=== PATIENT | male | born 1930 | race Caucasian/White ===

== ENCOUNTER 2019-12-12 07:22 | Emergency (ER) | payer MEDICARE, OTHER ==
[~2019-12-12] VITALS: Ht 172.7 cm; Wt 78.9 kg
--- NOTE | 2019-12-12 07:30 | NUR ---
fr home c/o nausea and vomiting and bilateral flank pain. pt is french speaking. family member at bedside for czech translation. no fever noted. awaiting for md hurst
--- NOTE | 2019-12-12 07:45 | NUR ---
iv line established. blood drawn and sent to lab. pt unable to collect urine at this time
[2019-12-12] MEDS ORDERED: ONDANSETRON HCL/PF 4 MG/2 ML VIAL IVP ONE (08:00)
[2019-12-12] MEDS ORDERED: MORPHINE SULFATE INJ 2 MG/ML DISP.SYRIN IV ONE ×2 (08:00→10:30)
[2019-12-12] MEDS ORDERED: MORPHINE SULFATE INJ 2 MG/ML DISP.SYRIN ONE ×2 (08:01→10:29)
[2019-12-12] MEDS ORDERED: ONDANSETRON HCL/PF 4 MG/2 ML VIAL ONE ×2 (08:01→10:41)
[2019-12-12 08:20] LABS: CALCIUM, SERUM 8.8 mg/dL (8.5-10.1); CARBON DIOXIDE 25 mmol/L (21-32); CHLORIDE 107 mmol/L (98-107); CREATININE 1.6 mg/dL (0.6-1.3); GLUCOSE 157 mg/dL (74-106); POTASSIUM 5.1 mmol/L (3.5-5.1); SODIUM SERUM 143 mmol/L (136-145); UREA NITROGEN, BLOOD 40 mg/dL (7-18)
[2019-12-12 08:25] LABS: ALANINE AMINOTRANSFERASE 37 U/L (12-78); ALBUMIN 4.3 g/dL (3.4-5.0); ALKALINE PHOSPHATASE 114 U/L (46-116); ASPARTATE AMINOTRANSFERASE 37 U/L (15-37); BILIRUBIN,DIRECT 0.1 mg/dL (0.0-0.2); BILIRUBIN,TOTAL 0.5 mg/dL (0.2-1.0); LIPASE 83 U/L (73-393); TOTAL PROTEIN, SERUM 7.8 g/dL (6.4-8.2)
--- NOTE | 2019-12-12 08:46 | NUR ---
URINE COLLECTED AND SENT TO LAB
[2019-12-12 08:54] LABS: HEMATOCRIT 32 % (39-51); HEMOGLOBIN 9.7 g/dL (13.5-17.5); LYMPHOCYTES # (AUTO) 9.1 /CMM (0.8-4.8); LYMPHOCYTES % (AUTO) 11.5 % (20.0-44.0); MEAN CORPUSCULAR HGB CONC 30 g/dl (31.0-36.0); MEAN CORPUSCULAR VOLUME 82 fL (80-96); MONOCYTES # (AUTO) 40.5 /CMM (0.1-1.30); MONOCYTES % (AUTO) 51.3 % (2.0-12.0); NEUTROPHILS # (AUTO) 29.4 /CMM (1.8-8.9); NEUTROPHILS % (AUTO) 37.2 % (43.0-81.0); PLATELET COUNT (AUTO) 170 /CMM (150-450); RED BLOOD CELL COUNT(AUTO) 3.86 MIL/uL (4.5-6.0)
--- NOTE | 2019-12-12 09:03 | NUR ---
received wbc result of 79. relayed to
[2019-12-12 09:07] LABS: BILIRUBIN,URINE Negative (NEGATIVE); BLOOD, URINE Large Ery/uL (NEGATIVE); COLOR,URINE Yellow (YELLOW); KETONES,URINE Negative (NEGATIVE); LEUKOCYTE ESTERASE ,URINE Negative (NEGATIVE); NITRITE, URINE Negative (NEGATIVE); PH,URINE 5.5 (5.0-8.0); PROTEIN,URINE 100 mg/dl (NEGATIVE); UGLUCOSE Negative (NEGATIVE); UROBILINOGEN,URINE 0.2 EU/dL (0.2)
[2019-12-12 09:11] LABS: APPEARANCE,URINE SLIGHTLY CLOUDY (CLEAR)
[2019-12-12 09:21] LABS: BAND % (MANUAL) 18 % (0.0-5.0); LYMPHOCYTES % (MANUAL) 14 % (16-48); METAMYELOCYTES % 1 % (0-0); MONOCYTES % (MANUAL) 18 % (0-11.0); MYELOCYTES % 1 % (0-0); NEUTROPHILS % (MANUAL) 48 (42-76)
[2019-12-12 09:31] LABS: RBC,URINE 21-50 /HPF (0-2)
[2019-12-12 09:32] LABS: BACTERIA,URINE Few /HPF (None Seen); SQUAMOUS EPITHELIAL CELL,UR Few /HPF (None Seen)
[2019-12-12] MEDS ORDERED: FOLI0.4T2 PO (09:44)
[2019-12-12] MEDS ORDERED: ROSU20TA2 PO (09:44)
[2019-12-12] MEDS ORDERED: DEXL60CA3 PO (09:44)
[2019-12-12] MEDS ORDERED: COLC0.6C3 PO (09:44)
[2019-12-12] MEDS ORDERED: MEMA14CA PO (09:44)
[2019-12-12] MEDS ORDERED: DUTA0.5C PO (09:44)
[2019-12-12] MEDS ORDERED: ERGO500014 PO (09:44)
[2019-12-12] MEDS ORDERED: LOPE2CAP PO (09:44)
[2019-12-12] MEDS ORDERED: DICL100G16 TP (09:44)
[2019-12-12] MEDS ORDERED: FESO4TAB PO (09:44)
[2019-12-12] MEDS ORDERED: EZET10TA16 PO (09:44)
[2019-12-12] MEDS ORDERED: CELE200C PO (09:44)
[2019-12-12] MEDS ORDERED: ACET-2605 PO (09:44)
[2019-12-12] MEDS ORDERED: ASPI-1169 PO (09:44)
[2019-12-12] MEDS ORDERED: KETOROLAC TROMETHAMINE INJ 30 MG/ML VIAL ONE (10:30)
[2019-12-12] MEDS ORDERED: KETOROLAC TROMETHAMINE INJ 30 MG/ML VIAL IV ONE (10:30)
[2019-12-12] MEDS ORDERED: IV NS 0.9% 500 ML BAG IV ONE (10:30)
[2019-12-12] MEDS ORDERED: ONDANSETRON HCL/PF - ER 4 MG/2 ML VIAL IV ONE (11:00)
--- NOTE | 2019-12-12 11:15 | NUR ---
pt in bed alert and able to make needs known. family member at bedside for czech hand ii cutter. pt no pain at this time. all needs attended. v/s stable.
[2019-12-12 11:51] VITALS: BP 123/76
== END 2019-12-12 11:51 | disposition home or self-care (01) ==
LOC: ER 07:28
DX: N20.0 Calculus of kidney (principal); D46.9 Myelodysplastic syndrome, unspecified; R16.1 Splenomegaly, not elsewhere classified; Z79.899 Other long term (current) drug therapy; Z79.82 Long term (current) use of aspirin
CPT/HCPCS: 36415; 71045; 74176; 80048; 80076; 81001; 83690; 85007; 85025; 85730; 93005; 96374; 96375; 96376; 99285; J1885; J2270 ×2; J2405 ×3; J7040; 81000-TC

== ENCOUNTER 2019-12-16 16:17 | Emergency (ER) | payer MEDICARE, OTHER ==
[~2019-12-16] VITALS: Ht 172.7 cm; Wt 81.6 kg
[~2019-12-16 16:17] MED LIST: ACET-2605 PO; ASPI-1169 PO; CELE200C PO; COLC0.6C3 PO; DEXL60CA3 PO; DICL100G16 TP; DUTA0.5C PO; ERGO500014 PO; EZET10TA16 PO; FESO4TAB PO; FOLI0.4T2 PO; LOPE2CAP PO; MEMA14CA PO; ROSU20TA2 PO
--- NOTE | 2019-12-16 16:25 | NUR ---
PT BIB [facility] WITH C/O R LOWER BACK PAIN 10/19. PER CAREGIVER PT WAS JUST HERE LAST MOPNDAY AND THAT THEY DIAGNOSED PT WITH KIDNEY STONES. VS CHECKED. BLOOD DRAWN. SENT TO LAB. IV ACCESS STARTED ON RFA G18. AWAITING MD MATHEW.
[2019-12-16] MEDS ORDERED: MORPHINE SULFATE INJ 4 MG/ML DISP.SYRIN ONE (16:53)
[2019-12-16] MEDS ORDERED: ONDANSETRON HCL/PF 4 MG/2 ML VIAL ONE (16:53)
[2019-12-16] MEDS ORDERED: ONDANSETRON HCL/PF 4 MG/2 ML VIAL IVP ONE (17:00)
[2019-12-16] MEDS ORDERED: IV NS 0.9% 1,000 ML BAG IV ONE ×2 (17:00→18:00)
[2019-12-16] MEDS ORDERED: MORPHINE SULFATE INJ 2 MG/ML DISP.SYRIN IV ONE (17:00)
[2019-12-16 17:09] LABS: CALCIUM, SERUM 8.9 mg/dL (8.5-10.1); CARBON DIOXIDE 21 mmol/L (21-32); CHLORIDE 100 mmol/L (98-107); CREATININE 2.5 mg/dL (0.6-1.3); EOSINOPHILS % (AUTO) 0.1 % (0.0-6.0); GLUCOSE 97 mg/dL (74-106); HEMATOCRIT 29 % (39-51); LYMPHOCYTES # (AUTO) 5.7 /CMM (0.8-4.8); LYMPHOCYTES % (AUTO) 12.9 % (20.0-44.0); MEAN CORPUSCULAR HGB CONC 31 g/dl (31.0-36.0); MEAN CORPUSCULAR VOLUME 82 fL (80-96); MONOCYTES # (AUTO) 27.5 /CMM (0.1-1.30); MONOCYTES % (AUTO) 61.9 % (2.0-12.0); NEUTROPHILS # (AUTO) 11.1 /CMM (1.8-8.9); NEUTROPHILS % (AUTO) 25.1 % (43.0-81.0); PLATELET COUNT (AUTO) 136 /CMM (150-450); POTASSIUM 5.2 mmol/L (3.5-5.1); RED BLOOD CELL COUNT(AUTO) 3.52 MIL/uL (4.5-6.0); SODIUM SERUM 133 mmol/L (136-145); UREA NITROGEN, BLOOD 36 mg/dL (7-18)
[2019-12-16 17:12] LABS: WHITE BLOOD COUNT (AUTO) 44.4 K/uL (4.3-11.0)
[2019-12-16 17:15] LABS: ALANINE AMINOTRANSFERASE 21 U/L (12-78); ALBUMIN 3.9 g/dL (3.4-5.0); ALKALINE PHOSPHATASE 126 U/L (46-116); ASPARTATE AMINOTRANSFERASE 28 U/L (15-37); BILIRUBIN,DIRECT 0.2 mg/dL (0.0-0.2); BILIRUBIN,TOTAL 0.5 mg/dL (0.2-1.0); TOTAL PROTEIN, SERUM 7.8 g/dL (6.4-8.2)
[2019-12-16 17:37] LABS: APPEARANCE,URINE Slightly Cloudy (CLEAR); BILIRUBIN,URINE Negative (NEGATIVE); BLOOD, URINE Large Ery/uL (NEGATIVE); COLOR,URINE Yellow (YELLOW); LEUKOCYTE ESTERASE ,URINE Trace (NEGATIVE); NITRITE, URINE Negative (NEGATIVE); PH,URINE 5.5 (5.0-8.0); PROTEIN,URINE 30 mg/dl (NEGATIVE); UGLUCOSE Negative (NEGATIVE); UROBILINOGEN,URINE 0.2 EU/dL (0.2)
--- NOTE | 2019-12-16 17:45 | NUR ---
PT BACK FROM CT
--- NOTE | 2019-12-16 17:49 | NUR ---
CALLED DR MCKEON, LEFT VOICEMAIL
[2019-12-16 18:08] LABS: BACTERIA,URINE Few /HPF (None Seen); SQUAMOUS EPITHELIAL CELL,UR 0-2 /HPF (None Seen)
[2019-12-16 18:11] LABS: URINE AMORPHOUS URATE Moderate /HPF (None Seen)
--- NOTE | 2019-12-16 18:11 | NUR ---
DR MODI SPEAKING WITH DR MCKEON
--- NOTE | 2019-12-16 18:15 | NUR ---
DR. MODI BY BEDSIDE SPEAKING WITH THE DAUGHTER
[2019-12-16] MEDS ORDERED: KETOROLAC TROMETHAMINE 15 MG/ML VIAL ONE (18:19)
[2019-12-16] MEDS ORDERED: BISACODYL SUPP (10 MG) 10 MG/SUPP.RECT SUPP.RECT RC ONE ×2 (18:22→18:30)
[2019-12-16] MEDS ORDERED: KETOROLAC TROMETHAMINE INJ 30 MG/ML VIAL IV ONE (18:30)
[2019-12-16 19:03] LABS: BAND % (MANUAL) 7 % (0.0-5.0); LYMPHOCYTES % (MANUAL) 30 % (16-48); MONOCYTES % (MANUAL) 20 % (0-11.0); NEUTROPHILS % (MANUAL) 40 (42-76); REACTIVE LYMPHOCYTES 3 % (0-0)
--- NOTE | 2019-12-16 19:14 | NUR ---
Patient discharged to home in stable condition. Written and verbal after care instructions given. Patient verbalizes understanding of instruction. IV removed. Catheter intact and site benign. Pressure and 4x4 applied to site. No bleeding noted.
[2019-12-16 19:15] VITALS: BP 136/72
== END 2019-12-16 19:16 | disposition home or self-care (01) ==
LOC: ER 16:22
DX: N23 Unspecified renal colic (principal); E86.0 Dehydration; N28.9 Disorder of kidney and ureter, unspecified; D46.9 Myelodysplastic syndrome, unspecified; Z79.899 Other long term (current) drug therapy; Z79.82 Long term (current) use of aspirin
CPT/HCPCS: 36415; 74176; 80048; 80076; 81001; 85007; 85025; 96361; 96374; 96375; 99284; J1885; J2270; J2405; J7030 ×2; 81000-TC

== ENCOUNTER 2019-12-21 22:55 | Inpatient (IN) | payer MEDICARE, OTHER ==
[~2019-12-21] VITALS: Ht 172.7 cm; Wt 78.5 kg
[~2019-12-21 22:55] MED LIST changes: -EZET10TA16 PO; +EZET10TA6 PO
--- NOTE | 2019-12-21 23:05 | NUR ---
pt BIBSON C/O DYSURIA. RECENTLY DX WITH KIDNEY STONE 12/12/19. PT SATTING 91% ON RA. PT PLACED ON O2 2 LPM SATTING 94%. PT AAOX4, VSS, RESPIRATIONS EVEN AND UNLABORED ON RA W/ NAD NOTED. PT CONNECTED TO THE MONITOR AND POX
--- NOTE | 2019-12-21 23:10 | NUR ---
BLOOD COLLECTED AND SENT TO LAB
[2019-12-21 23:33] LABS: BASOPHILS # (AUTO) 0.8 /CMM (0.0-0.2); BASOPHILS % (AUTO) 1.2 % (0.0-2.0); EOSINOPHILS % (AUTO) 0.4 % (0.0-6.0); HEMATOCRIT 28 % (39-51); HEMOGLOBIN 8.5 g/dL (13.5-17.5); LYMPHOCYTES # (AUTO) 3.8 /CMM (0.8-4.8); LYMPHOCYTES % (AUTO) 6.1 % (20.0-44.0); MEAN CORPUSCULAR HGB CONC 31 g/dl (31.0-36.0); MEAN CORPUSCULAR VOLUME 81 fL (80-96); MONOCYTES # (AUTO) 5.6 /CMM (0.1-1.30); MONOCYTES % (AUTO) 9.1 % (2.0-12.0); NEUTROPHILS # (AUTO) 51.2 /CMM (1.8-8.9); NEUTROPHILS % (AUTO) 83.2 % (43.0-81.0); PLATELET COUNT (AUTO) 140 /CMM (150-450); RED BLOOD CELL COUNT(AUTO) 3.42 MIL/uL (4.5-6.0)
[2019-12-21 23:34] LABS: WHITE BLOOD COUNT (AUTO) 61.6 K/uL (4.3-11.0)
[2019-12-21 23:41] LABS: CALCIUM, SERUM 8.2 mg/dL (8.5-10.1); CARBON DIOXIDE 21 mmol/L (21-32); CHLORIDE 102 mmol/L (98-107); CREATININE 3.1 mg/dL (0.6-1.3); GLUCOSE 126 mg/dL (74-106); POTASSIUM 5.1 mmol/L (3.5-5.1); SODIUM SERUM 133 mmol/L (136-145); UREA NITROGEN, BLOOD 50 mg/dL (7-18)
[2019-12-21 23:47] LABS: ALANINE AMINOTRANSFERASE 20 U/L (12-78); ALBUMIN 2.9 g/dL (3.4-5.0); ALKALINE PHOSPHATASE 186 U/L (46-116); ASPARTATE AMINOTRANSFERASE 30 U/L (15-37); BILIRUBIN,DIRECT 0.2 mg/dL (0.0-0.2); BILIRUBIN,TOTAL 0.4 mg/dL (0.2-1.0); LIPASE 99 U/L (73-393); TOTAL PROTEIN, SERUM 7.2 g/dL (6.4-8.2)
[2019-12-22 00:01] LABS: BILIRUBIN,URINE SMALL (NEGATIVE); BLOOD, URINE Moderate Ery/uL (NEGATIVE); COLOR,URINE YELLOW (YELLOW); LEUKOCYTE ESTERASE ,URINE Trace (NEGATIVE); NITRITE, URINE Negative (NEGATIVE); PROTEIN,URINE 30 mg/dl (NEGATIVE); UGLUCOSE Negative (NEGATIVE); UROBILINOGEN,URINE 0.2 EU/dL (0.2)
[2019-12-22 00:01] LABS: BAND % (MANUAL) 4 % (0.0-5.0); LYMPHOCYTES % (MANUAL) 32 % (16-48); MONOCYTES % (MANUAL) 8 % (0-11.0); NEUTROPHILS % (MANUAL) 41 (42-76)
[2019-12-22 00:02] LABS: BACTERIA,URINE Few /HPF (None Seen); RBC,URINE 21-50 /HPF (0-2); SQUAMOUS EPITHELIAL CELL,UR Few /HPF (None Seen)
[2019-12-22 00:02] LABS: METAMYELOCYTES % 15 % (0-0)
--- NOTE | 2019-12-22 00:28 | NUR ---
CALLED RT FOR BREATHING TX
[2019-12-22] MEDS ORDERED: ALBUTEROL FS 2.5 MG/0.5 ML VIAL.NEB NEB ONE (00:30)
[2019-12-22] MEDS ORDERED: IV NS 0.9% 1,000 ML BAG IV ONE (00:30)
[2019-12-22] MEDS ORDERED: ZOLPIDEM TARTRATE 5 MG TABLET PO PRN (01:00)
[2019-12-22] MEDS ORDERED: Z GUARD REMEDY 2 OZ OINT TP PRN (01:00)
[2019-12-22] MEDS ORDERED: MAG HYDROX/AL HYDROX/SIMETH 30 ML UDC PO PRN (01:00)
[2019-12-22] MEDS ORDERED: HYDROCODONE/APAP 5/325MG TABLET PO PRN (01:00)
[2019-12-22] MEDS ORDERED: ACETAMINOPHEN 325 MG TABLET PO PRN (01:00)
[2019-12-22] MEDS ORDERED: ONDANSETRON HCL/PF 4 MG/2 ML VIAL IVP PRN (01:00)
[2019-12-22] MEDS ORDERED: MAGNESIUM HYDROXIDE 30 ML UDC PO PRN (01:00)
[2019-12-22] MEDS ORDERED: DICLOFENAC TOPICAL 100 GM GEL..GM. TP PRN ×2 (01:00→07:30)
[2019-12-22] MEDS ORDERED: LOPERAMIDE HCL (2 MG CAP) 2 MG CAPSULE PO PRN (01:00)
[2019-12-22] MEDS ORDERED: ALBUTEROL FS 2.5 MG/0.5 ML VIAL.NEB ONE (01:01)
--- NOTE | 2019-12-22 01:06 | NUR ---
RT AT BEDSIDE
--- NOTE | 2019-12-22 01:34 | NUR ---
BED ASSIGNMENT 326-2
--- NOTE | 2019-12-22 01:38 | NUR ---
ULTRASOUND AT BEDSIDE
--- NOTE | 2019-12-22 02:00 | NUR ---
REPORT GIVEN NUVIA SIMMONS FOR TRAVIS
[2019-12-22] MEDS ORDERED: TAMS-12 PO (02:20)
[2019-12-22] MEDS ORDERED: CEFTRIAXONE 1 G VIAL ONE (02:25)
[2019-12-22 02:30] VITALS: BP 133/67
--- NOTE | 2019-12-22 02:30 | NUR ---
CLIFFORD RECEIVED FROM ER VIA GURNEY AN 89 Y/O [place]LAND[place] SPEAKING MALE FROM HOME WITH CHIEF COMPLAINTS OF DYSURIA WHO WAS RECENTLY DX WITH KIDNEY STONES LAST NOV . WILL HAVE UROLOGY APPT ON 18 AT [facility] PER REPORT. NO PAIN OF THIS TIME. COOPERATIVE, ABLE TO ANSWER QUESTIONS WITH LIMITED GREENLAND[place]. ABLE TO UNDERSTAND INSTRUCTIONS IN SIMPLE [place]LAND[place]. MILD SOB UPON ARRIVAL 91% ON RA. V/S STABLE. PT CONNECTED TO CONTINUES PULSE OX SATURATING 94 TO 95 % ON 2 LITERS VIA SIMPLE MASK. REFUSED TO USE NASAL CANNULA. PREFERS MASK. STATING HE IS A MOUTH BREATHER. PROVIDED URINAL AT BEDSIDE. CALL LIGHT USE REVIEWED WITH PATIENT WELL UNDERSTOOD. SAFETY PRECAUTIONS EMPHASIZED, BED ALARM ON. CLOSELY WATCHED.
[2019-12-22] MEDS: IV NS 0.9% 1,000 ML IV SCH ×3 (02:50→21:24)
[2019-12-22] MEDS: CEFTRIAXONE 1 G in IV D5W 50 ML IV SCH (02:51)
[2019-12-22 03:04] VITALS: BP 133/67
--- NOTE | 2019-12-22 04:07 | NUR ---
MSRN ASLEEP, APPEARS COMFORTABLE. WILL FOLLOW UP IMMUNIZATION.
--- NOTE | 2019-12-22 05:10 | NUR ---
MSRN ASSISTED TO RESTROOM. REFUSED TO BE RECONNECTED TO IVF. STATED UNABLE TO SLEEP AND TURN SELF WITH IVF ON. WANTED TO BE CONNECTED BY 8AM. REFUSED TO USE 02. SAME COMPLAINT, UNABLE TO SLEEP WITH 02 ON. SLIGHT EXERTIONAL SOB SEEN. SATURATION 91 TO 92% ON RA. WILL MONITOR CLOSELY.
--- NOTE | 2019-12-22 06:50 | NUR ---
MSRN OBTAINED CONSENT TO LUNG SCAN FROM DAUGHTER VIA PHONE. KEPT NPO. LANE OF NUCLEAR MED AWARE.
[2019-12-22 07:13] LABS: BASOPHILS # (AUTO) 1.5 /CMM (0.0-0.2); BASOPHILS % (AUTO) 2.9 % (0.0-2.0); EOSINOPHILS % (AUTO) 0.4 % (0.0-6.0); HEMATOCRIT 25 % (39-51); HEMOGLOBIN 7.8 g/dL (13.5-17.5); LYMPHOCYTES # (AUTO) 4.9 /CMM (0.8-4.8); LYMPHOCYTES % (AUTO) 9.6 % (20.0-44.0); MEAN CORPUSCULAR HGB CONC 32 g/dl (31.0-36.0); MEAN CORPUSCULAR VOLUME 80 fL (80-96); MONOCYTES # (AUTO) 12.1 /CMM (0.1-1.30); MONOCYTES % (AUTO) 23.7 % (2.0-12.0); NEUTROPHILS # (AUTO) 32.5 /CMM (1.8-8.9); NEUTROPHILS % (AUTO) 63.4 % (43.0-81.0); PLATELET COUNT (AUTO) 111 /CMM (150-450); RED BLOOD CELL COUNT(AUTO) 3.08 MIL/uL (4.5-6.0)
--- NOTE | 2019-12-22 07:15 | NUR ---
MSRN 02 ON/OFF. ENDORSED TO INCOMING RN FOR CONTINUITY OF CARE.
[2019-12-22 07:18] LABS: CALCIUM, SERUM 7.7 mg/dL (8.5-10.1); CARBON DIOXIDE 20 mmol/L (21-32); CHLORIDE 106 mmol/L (98-107); CREATININE 2.9 mg/dL (0.6-1.3); GLUCOSE 105 mg/dL (74-106); PHOSPHORUS 3.7 mg/dL (2.5-4.9); POTASSIUM 4.7 mmol/L (3.5-5.1); SODIUM SERUM 139 mmol/L (136-145); UREA NITROGEN, BLOOD 46 mg/dL (7-18)
[2019-12-22 07:22] LABS: CHOLESTEROL 77 mg/dL (<200); LDL 33 mg/dL (0-99); TRIGLYCERIDES 201 mg/dL (30-150)
[2019-12-22 07:24] LABS: WHITE BLOOD COUNT (AUTO) 51.2 K/uL (4.3-11.0)
--- NOTE | 2019-12-22 07:30 | NUR ---
MS RN NOTES PATIENT RECEIVED IN BED, RESTING COMFORTABLY. ALERT AND ORIENTED X 3, SYRIAC SPEAKING. PATIENT PREFERS SIMPLE MASK, ON 2 LITERS OF OXYGEN. PATIENT IV ACCESS INTACT AND PATENT, RECEIVING IV FLUIDS OF NS 100ml/hr. PATIENT PRESENTS WITH NO SIGNS OF PAIN OR DISCOMFORT AT THIS TIME. SAFETY PRECAUTIONS IMPLEMENTED WITH BED LOCKED, BED IN THE LOWEST POSITION, BILATERAL SIDE RAILS UP, BED ALARM ON, AND CALL LIGHT WITHIN EASY REACH OF PATIENT. WILL CONTINUE TO MONITOR PATIENT.
[2019-12-22 07:47] LABS: HDL CHOLESTEROL < 10 mg/dL (40-60)
[2019-12-22 08:00] VITALS: BP 136/73
[2019-12-22] MEDS: ASPIRIN 81 MG TAB.CHEW PO SCH (09:00)
[2019-12-22] MEDS: MEMANTINE HCL 5 MG TABLET PO SCH ×2 (09:00→21:00)
[2019-12-22] MEDS: FOLIC ACID 1 MG TABLET PO SCH (09:00)
[2019-12-22] MEDS: OXYBUTYNIN CHLORIDE 5 MG TABLET PO SCH ×2 (09:00→16:35)
[2019-12-22] MEDS: ATORVASTATIN 40 MG TABLET PO SCH (09:00)
[2019-12-22] MEDS ORDERED: ERGOCALCIFEROL (VITAMIN D 2) 50,000 UNIT CAPSULE PO SCH (09:00)
[2019-12-22] MEDS: EZETIMIBE 10 MG TABLET PO SCH (09:00)
[2019-12-22 09:19] LABS: BAND % (MANUAL) 4 % (0.0-5.0); LYMPHOCYTES % (MANUAL) 8 % (16-48); MONOCYTES % (MANUAL) 39 % (0-11.0); NEUTROPHILS % (MANUAL) 49 (42-76)
--- NOTE | 2019-12-22 10:10 | NUR ---
MS RN NOTES HOSPITALIST MADE AWARE OF PATIENT'S VTE SCORE OF 3, AND NO ORDERS OF PROPHYLAXIS MADE, INFORMED PATIENT'S HEMOGLOBIN TRENDING DOWN, AND HISTORY MYELODYSPLASTIC SYNDROME. NO NEW ORDERS MADE. WILL CONTINUE TO MONITOR PATIENT.
[2019-12-22] MEDS: PANTOPRAZOLE 40 MG TABLET.DR PO SCH (10:11)
[2019-12-22] MEDS: TAMSULOSIN 0.4 MG CAP.SR.24H PO SCH (10:12)
--- NOTE | 2019-12-22 10:17 | NUR ---
MS RN NOTES HOSPITALIST MADE AWARE PATIENT REFUSED MORNING MEDICATIONS. EDUCATED THE IMPORTANCE OF EACH MEDICATION, AND MULTIPLE ATTEMPTS WERE MADE, PATIENT KEPT REFUSING. WILL CONTINUE TO MONITOR PATIENT.
[2019-12-22] MEDS ORDERED: ALUMINUM HYDROXIDE 1,920 MG/30 ML UDC PO PRN (13:00)
--- NOTE | 2019-12-22 18:50 | NUR ---
MS RN NOTES PATIENT IN BED, RESTING COMFORTABLY. ALERT AND ORIENTED X 3, SLOVENIAN SPEAKING. PATIENT PREFERS SIMPLE MASK, ON 2 LITERS OF OXYGEN. PATIENT IV ACCESS INTACT AND PATENT, RECEIVING IV FLUIDS OF NS 100ml/hr. PATIENT PRESENTS WITH NO SIGNS OF PAIN OR DISCOMFORT AT THIS TIME. MET ALL OF PATIENT'S NEEDS. SAFETY PRECAUTIONS IMPLEMENTED WITH BED LOCKED, BED IN THE LOWEST POSITION, BILATERAL SIDE RAILS UP, BED ALARM ON, AND CALL LIGHT WITHIN EASY REACH OF PATIENT. WILL ENDORSE PLAN OF CARE TO UPCOMING RN.
--- NOTE | 2019-12-22 20:00 | NUR ---
MS/RN OPENING NOTE Patient awake in bed, A/O x4, ambulatory. Patient denies pain, nausea/vomiting, diarrhea. Breathing even, clear, unlabored, on NC 2LPM saturating well. No JVD. CRP <3seconds. Tongue midline, no tracheal deviation. Skin is warm, pink, dry, appropriate for ethnicity, intact. IV site right wrist 18 saline running NS @ 100 ml/hr. No signs of redness or infiltration. Patient on cardiac diet. Abdomen large, round soft, non-distended. BS active. Bed in low position, wheels locked, side rails up x2, call light within reach.
[2019-12-22 20:14] VITALS: BP 141/63
--- NOTE | 2019-12-22 21:00 | NUR ---
MS/RN NOTE Patient refused scheduled PO medication. Patient states "he doesn't need it anymore". Will continue to monitor.
[2019-12-22 22:22] VITALS: BP 141/63
[2019-12-22 23:11] LABS: IRON, SERUM 54 ug/dl (50-175); TOTAL IRON BINDING CAPACITY 241 ug/dl (250-450)
[2019-12-22 23:47] LABS: FERRITIN 806 ng/mL (8-388)
[2019-12-23] MEDS: CEFTRIAXONE 1 G in IV D5W 50 ML IV SCH (01:43)
--- NOTE | 2019-12-23 06:09 | NUR ---
MS/RN CLOSING NOTE Patient awake in bed, A/O x4, ambulatory. Patient denies pain, nausea/vomiting, diarrhea. Breathing even, clear, unlabored, on NC 2LPM saturating well. Skin is warm, pink, dry, appropriate for ethnicity, intact. IV site right wrist 18 saline running NS @ 100 ml/hr. No signs of redness or infiltration. Bed in low position, wheels locked, side rails up x2, call light within reach.
--- NOTE | 2019-12-23 06:10 | NUR ---
TELE/RN NOTE Patient refused blood draw this AM.
[2019-12-23] MEDS: IV NS 0.9% 1,000 ML IV SCH (06:17)
[2019-12-23 08:00] VITALS: BP 115/56
[2019-12-23] MEDS: TAMSULOSIN 0.4 MG CAP.SR.24H PO SCH (08:25)
[2019-12-23] MEDS: PANTOPRAZOLE 40 MG TABLET.DR PO SCH (08:26)
[2019-12-23] MEDS: OXYBUTYNIN CHLORIDE 5 MG TABLET PO SCH (08:26)
[2019-12-23] MEDS: EZETIMIBE 10 MG TABLET PO SCH (08:28)
[2019-12-23] MEDS: MEMANTINE HCL 5 MG TABLET PO SCH (08:28)
[2019-12-23] MEDS: FOLIC ACID 1 MG TABLET PO SCH (08:29)
[2019-12-23] MEDS: ASPIRIN 81 MG TAB.CHEW PO SCH (08:29)
[2019-12-23] MEDS: ATORVASTATIN 40 MG TABLET PO SCH (08:29)
--- NOTE | 2019-12-23 10:00 | NUR ---
MS RN NOTES PATIENT NONE COMPLIANT WITH CARE. PATIENT STATES HE HAS TO SPEAK TO HIS DAUGHTER BEFORE TAKING ANY MEDICATIONS. EDUCATION PROVIDED ON RISKS OF REFUSING MEDICATIONS.
[2019-12-23 10:55] LABS: BASOPHILS % (AUTO) 2.2 % (0.0-2.0); HEMATOCRIT 29 % (39-51); HEMOGLOBIN 8.8 g/dL (13.5-17.5); LYMPHOCYTES # (AUTO) 7.2 /CMM (0.8-4.8); LYMPHOCYTES % (AUTO) 7.9 % (20.0-44.0); MEAN CORPUSCULAR HGB CONC 30 g/dl (31.0-36.0); MEAN CORPUSCULAR VOLUME 81 fL (80-96); MONOCYTES # (AUTO) 2.3 /CMM (0.1-1.30); MONOCYTES % (AUTO) 2.5 % (2.0-12.0); NEUTROPHILS # (AUTO) 77.7 /CMM (1.8-8.9); NEUTROPHILS % (AUTO) 85.4 % (43.0-81.0); PLATELET COUNT (AUTO) 150 /CMM (150-450); RED BLOOD CELL COUNT(AUTO) 3.61 MIL/uL (4.5-6.0)
[2019-12-23 11:35] LABS: CALCIUM, SERUM 8.2 mg/dL (8.5-10.1); CARBON DIOXIDE 22 mmol/L (21-32); CHLORIDE 104 mmol/L (98-107); CREATININE 2.4 mg/dL (0.6-1.3); GLUCOSE 118 mg/dL (74-106); POTASSIUM 4.7 mmol/L (3.5-5.1); SODIUM SERUM 137 mmol/L (136-145); UREA NITROGEN, BLOOD 42 mg/dL (7-18)
[2019-12-23] MEDS ORDERED: HYDROXYUREA 500 MG CAPSULE PO SCH (13:00)
--- NOTE | 2019-12-23 13:07 | NUR ---
MS RN NOTES PATIENT WANTS TO SPEAK TO DAUGHTER BEFORE TAKING HYDROXYUREA CAPSULES AND HIS PRIMARY ONCOLOGIST.
--- NOTE | 2019-12-23 13:17 | NUR ---
MS RN NOTES SPOKE TO RUFINA VALENTINE WHO SPOKE TO PATIENTS DAUGHTER. PLAN IS TO REPEAT CBC TO CONFIRM WBC RESULTS THEN TAKE ACTION. WILL CONTINUE TO MONITOR.
[2019-12-23 13:50] LABS: BASOPHILS # (AUTO) 1.9 /CMM (0.0-0.2); BASOPHILS % (AUTO) 2.1 % (0.0-2.0); EOSINOPHILS % (AUTO) 0.1 % (0.0-6.0); HEMATOCRIT 29 % (39-51); HEMOGLOBIN 8.7 g/dL (13.5-17.5); LYMPHOCYTES # (AUTO) 6.3 /CMM (0.8-4.8); LYMPHOCYTES % (AUTO) 6.9 % (20.0-44.0); MEAN CORPUSCULAR HGB CONC 30 g/dl (31.0-36.0); MEAN CORPUSCULAR VOLUME 81 fL (80-96); MONOCYTES # (AUTO) 2.7 /CMM (0.1-1.30); MONOCYTES % (AUTO) 2.9 % (2.0-12.0); NEUTROPHILS # (AUTO) 81.2 /CMM (1.8-8.9); PLATELET COUNT (AUTO) 144 /CMM (150-450); RED BLOOD CELL COUNT(AUTO) 3.56 MIL/uL (4.5-6.0)
[2019-12-23] MEDS ORDERED: ALLOPURINOL 100 MG TABLET PO SCH (14:30)
[2019-12-23 15:09] LABS: WHITE BLOOD COUNT (AUTO) 92.2 K/uL (4.3-11.0)
--- NOTE | 2019-12-23 15:40 | NUR ---
MS RN NOTES PATIENT REFUSES MEDICATIONS. STATES HIS DAUGHTER IS COMING TO PICK HIM UP FROM THE HOSPITAL. ONCOLOGY ROAD SIGN INSTALLER AND UNIFORM FORCE CAPTAIN BOTH SPOKE TO PATIENTS DAUGHTER ABOUT THE CARE AND HIS CONDITION.
[2019-12-23 15:46] LABS: BAND % (MANUAL) 11 % (0.0-5.0); BLASTS, MANUAL % 2 % (0-0); LYMPHOCYTES % (MANUAL) 17 % (16-48); MONOCYTES % (MANUAL) 4 % (0-11.0); MYELOCYTES % 4 % (0-0); NEUTROPHILS % (MANUAL) 47 (42-76); REACTIVE LYMPHOCYTES 2 % (0-0)
--- NOTE | 2019-12-23 16:57 | NUR ---
MS RN NOTES PATIENT DISCHARGED HOME. PATIENT ALERT,ORIENTED X3. NO SOB OR ACUTE DISTRESS NOTED. MD AWARE OF ALL ABNORMAL LABS AND TESTS. DISCHARGE PROTOCOL FOLLOWED. PATIENTS DAUGHTER IS AN MD AWARE AND KNOWLEDGEABLE OF PATIENTS CONDITION. ALL BELONGINGS ACCOUNTED FOR. BELONGING LISTS SIGNED. PERIPHERAL IV REMOVED WITH MINIMAL BLEEDING. ID BAND REMOVED. DISCHARGE TEACHING PROVIDED, VERBALIZED UNDERSTANDING. PATIENT ESCORTED TO CAR.
[2019-12-24] MEDS ORDERED: HYDROXYUREA 500 MG CAPSULE PO SCH (09:00)
[2019-12-25] MEDS ORDERED: ERGOCALCIFEROL (VITAMIN D 2) 50,000 UNIT CAPSULE PO SCH (09:00)
[2019-12-26 16:25] LABS: *SPE A/G RATIO 0.8 (0.7-1.7); *SPE ALPHA-1-GLOBULIN 0.5 g/dL (0.0-0.4); *SPE BETA GLOBULIN 0.8 g/dL (0.7-1.3); *SPE GLOBULIN, TOTAL 3.6 g/dL (2.2-3.9); *SPE M-SPIKE 0.3 g/dL (Not Observed); *SPEGAMMA GLOBULIN 1.3 g/dL (0.4-1.8)
== END 2019-12-23 16:57 | disposition home or self-care (01) | DRG 682 ==
LOC: ER 22:55 → MED 12-22 01:46
PROVIDERS: ADMIT Nurse Practitioner Acute Care; ATTEND Nurse Practitioner Acute Care
DX: N17.9 Acute kidney failure, unspecified (principal); J96.01 Acute respiratory failure with hypoxia; E43 Unspecified severe protein-calorie malnutrition; N39.0 Urinary tract infection, site not specified; D75.81 Myelofibrosis; C94.6 Myelodysplastic disease, not elsewhere classified; N13.6 Pyonephrosis; N20.0 Calculus of kidney; R16.1 Splenomegaly, not elsewhere classified; D63.8 Anemia in other chronic diseases classified elsewhere; D69.6 Thrombocytopenia, unspecified; F03.90 Unspecified dementia, unspecified severity, without behavioral disturbance, psychotic disturbance, mood disturbance, and anxiety; E78.5 Hyperlipidemia, unspecified; I12.9 Hypertensive chronic kidney disease with stage 1 through stage 4 chronic kidney disease, or unspecified chronic kidney disease; N18.9 Chronic kidney disease, unspecified; Z79.899 Other long term (current) drug therapy; Z87.442 Personal history of urinary calculi; E88.09 Other disorders of plasma-protein metabolism, not elsewhere classified; D64.9 Anemia, unspecified; N21.0 Calculus in bladder; Z68.26 Body mass index [BMI] 26.0-26.9, adult; N40.1 Benign prostatic hyperplasia with lower urinary tract symptoms
CPT/HCPCS: 36415; 71045-TC; 76770-TC; 78582; 80048-TC; 80061-TC; 80076-TC; 81001; 82728-TC; 82784; 83540-TC; 83605-TC; 83690-TC; 83735-TC; 84100-TC; 84155; 84165; 84484-TC; 84550-TC; 85025-TC; 85610-TC; 85730-TC; 86334; 86850-TC; 87040-TC; 87081-TC; 93971-TC; A9540; A9567; C9803; G0378; J0696; J7030; J7060

== ENCOUNTER 2020-01-01 07:02 | Emergency (ER) | payer MEDICARE, OTHER ==
[~2020-01-01] VITALS: Ht 172.7 cm; Wt 78.5 kg
[~2020-01-01 07:02] MED LIST changes: -ACET-2605 PO; -LOPE2CAP PO; +TAMS-12 PO
--- NOTE | 2020-01-01 07:10 | NUR ---
PT [id number] FROM HOME C/O ABDOMINAL PAIN 11/18 WITH NAUSEA PER RA, RECENTLY DX WITH KIDNEY STONE. VS CHECKED. AWATING MD MATHEW
[2020-01-01] MEDS ORDERED: ONDANSETRON HCL/PF 4 MG/2 ML VIAL ONE (07:57)
[2020-01-01] MEDS ORDERED: MORPHINE SULFATE INJ 4 MG/ML DISP.SYRIN ONE (07:58)
[2020-01-01] MEDS ORDERED: MORPHINE SULFATE INJ 2 MG/ML DISP.SYRIN IV ONE (08:00)
[2020-01-01] MEDS ORDERED: ONDANSETRON HCL/PF 4 MG/2 ML VIAL IVP ONE (08:00)
[2020-01-01] MEDS ORDERED: IV NS 0.9% 1,000 ML BAG IV ONE (08:00)
--- NOTE | 2020-01-01 08:07 | NUR ---
pt unable to provide urine specimen at the moment.
[2020-01-01 08:20] LABS: BASOPHILS # (AUTO) 2.9 /CMM (0.0-0.2); BASOPHILS % (AUTO) 2.5 % (0.0-2.0); EOSINOPHILS % (AUTO) 0.3 % (0.0-6.0); HEMATOCRIT 32 % (39-51); LYMPHOCYTES # (AUTO) 6.1 /CMM (0.8-4.8); LYMPHOCYTES % (AUTO) 5.3 % (20.0-44.0); MEAN CORPUSCULAR HGB CONC 29 g/dl (31.0-36.0); MEAN CORPUSCULAR VOLUME 83 fL (80-96); MONOCYTES # (AUTO) 3.8 /CMM (0.1-1.30); MONOCYTES % (AUTO) 3.3 % (2.0-12.0); NEUTROPHILS # (AUTO) 102.7 /CMM (1.8-8.9); NEUTROPHILS % (AUTO) 88.6 % (43.0-81.0); PLATELET COUNT (AUTO) 179 /CMM (150-450); RED BLOOD CELL COUNT(AUTO) 3.79 MIL/uL (4.5-6.0)
[2020-01-01] MEDS ORDERED: KETOROLAC TROMETHAMINE INJ 30 MG/ML VIAL ONE (08:25)
[2020-01-01 08:28] LABS: ALANINE AMINOTRANSFERASE 24 U/L (12-78); ALBUMIN 3.9 g/dL (3.4-5.0); ALKALINE PHOSPHATASE 167 U/L (46-116); ASPARTATE AMINOTRANSFERASE 25 U/L (15-37); BILIRUBIN,DIRECT 0.1 mg/dL (0.0-0.2); BILIRUBIN,TOTAL 0.4 mg/dL (0.2-1.0); CALCIUM, SERUM 7.8 mg/dL (8.5-10.1); CARBON DIOXIDE 18 mmol/L (21-32); CHLORIDE 109 mmol/L (98-107); CREATININE 1.7 mg/dL (0.6-1.3); GLUCOSE 175 mg/dL (74-106); POTASSIUM 5.7 mmol/L (3.5-5.1); SODIUM SERUM 140 mmol/L (136-145); TOTAL PROTEIN, SERUM 7.6 g/dL (6.4-8.2); UREA NITROGEN, BLOOD 42 mg/dL (7-18); WHITE BLOOD COUNT (AUTO) 115.8 K/uL (4.3-11.0)
[2020-01-01] MEDS ORDERED: KETOROLAC TROMETHAMINE INJ 30 MG/ML VIAL IV ONE (08:30)
--- NOTE | 2020-01-01 08:51 | NUR ---
LAB CALLED PT COVID RESULTS NEGATIVE (-)
--- NOTE | 2020-01-01 09:05 | NUR ---
back from ct
[2020-01-01 09:38] LABS: BILIRUBIN,URINE Negative (NEGATIVE); BLOOD, URINE Moderate Ery/uL (NEGATIVE); COLOR,URINE YELLOW (YELLOW); LEUKOCYTE ESTERASE ,URINE Negative (NEGATIVE); NITRITE, URINE Negative (NEGATIVE); PROTEIN,URINE 30 mg/dl (NEGATIVE); UGLUCOSE Negative (NEGATIVE); UROBILINOGEN,URINE 0.2 EU/dL (0.2)
[2020-01-01 09:52] LABS: BACTERIA,URINE None seen /HPF (None Seen); SQUAMOUS EPITHELIAL CELL,UR Few /HPF (None Seen); WBC,URINE NONE SEEN /HPF (0-3)
[2020-01-01] MEDS ORDERED: JAKAFI PO (10:08)
[2020-01-01] MEDS ORDERED: ESOM40CA52 PO (10:08)
[2020-01-01] MEDS ORDERED: ONDA-97 PO (10:08)
[2020-01-01] MEDS ORDERED: TRAM50TA2 PO (10:08)
[2020-01-01 10:16] VITALS: BP 131/81
[2020-01-01 11:37] LABS: BAND % (MANUAL) 14 % (0.0-5.0); LYMPHOCYTES % (MANUAL) 10 % (16-48); METAMYELOCYTES % 1 % (0-0); MONOCYTES % (MANUAL) 3 % (0-11.0); MYELOCYTES % 2 % (0-0); NEUTROPHILS % (MANUAL) 68 (42-76); REACTIVE LYMPHOCYTES 2 % (0-0)
== END 2020-01-01 10:17 | disposition home or self-care (01) ==
LOC: ER 07:04
DX: N13.2 Hydronephrosis with renal and ureteral calculous obstruction (principal); D46.9 Myelodysplastic syndrome, unspecified; Z87.442 Personal history of urinary calculi; N28.9 Disorder of kidney and ureter, unspecified; R73.03 Prediabetes; Z79.899 Other long term (current) drug therapy; Z20.828 Contact with and (suspected) exposure to other viral communicable diseases
CPT/HCPCS: 36415; 74176; 80048; 80076; 81001; 85007; 85025; 87426; 96361; 96374; 96375; 99284; J1885; J2270; J2405; J7030; C9803